=== PATIENT | male | born 1945 | race Caucasian/White ===

== ENCOUNTER 2016-09-27 22:58 | Inpatient (IN) | payer MEDICARE, OTHER ==
--- NOTE | ~2016-09-27 | HP ---
History And Physical [place] [id number] [facility] [place]. 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 HISTORY OF PRESENTING ILLNESS: The patient's history was obtained through an interview with the patient, coupled with review of [facility] medical records. The patient has been on chemotherapy for lymphoma under the care of Dr. Carly Gibson. The last chemotherapy was just two days prior to date of admission. For about three weeks now, the patient has been having increasing severe abdominal pain, but it has finally increased over these last two days, that it has become unbearable. He describes it across the upper abdomen mostly on the left side radiating towards the right, a cramping quality, 10/10 severity, exacerbated by food intake and associated with "a fear of eating." He cannot sleep at night because of increased pain. He has a lot of nausea, but no vomiting. He has had chills, but no fevers. He has been feeling hot and has had night sweats. During this time, his diabetes has been difficult to control with blood sugars consistently over 200. Over the last three weeks, he has lost about 25 pounds. REVIEW OF SYSTEMS: Otherwise, a 14-point review of systems was obtained and was negative. PAST MEDICAL HISTORY: 1. Lymphoma. First diagnosed in 2009 by records, now on chemotherapy, followed by Dr. Carly Gibson. 2. Diabetes. 3. Nephrolithiasis. 4. Obstructive sleep apnea, on CPAP. 5. Hypertension. 6. Elevated cholesterol. 7. GI bleed with peptic ulcer disease. Seen by Dr. Braydon Mohamud. 8. Fatty liver disease. 9. Rib fractures. 10.Myasthenia gravis. Thought to be in long-term remission now. He has a history of thymectomy. 11.Depression and anxiety. PAST SURGICAL HISTORY: 1. Melanoma in 2007. History And Physical [place] [address] [place]. [address] NAME: GINETTE AUGUST : 44 STATUS : ADM IN PAT#: [id number] AGE: 70 ADM/REG DATE : 09/28/16 MR#: [id number] REPORT SERV DATE: 09/28/16 DICTATED BY: LUIS HA DATE: 09/28/16 REPORT STATUS : Draft TRANSCRIBED BY: DONIS DATE: 09/28/16 2. Neck lymph node biopsies for initial diagnosis of lymphoma in 2009. 3. Umbilical hernia repair. 4. Thymectomy. 5. Multiple PEG tubes and G tube. 6. Right ankle surgery. ALLERGIES: NO KNOWN DRUG ALLERGIES. SOCIAL HISTORY: Quit smoking more than 30 years ago. Drinks occasional alcohol. He is . in good health. He has no biological children. 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 He lives in [place], [place]. FAMILY HISTORY: Two brothers with cancer. CURRENT MEDICATIONS: Include Norvasc 10 mg p.o. daily, benazepril 40 mg p.o. daily, Levemir 56 units subcutaneous twice a day, metformin 500 mg p.o. t.i.d., Zoloft 75 mg p.o. daily, allergy medication. PHYSICAL EXAMINATION: VITAL SIGNS: Temperature 98.6, pulse 85, blood pressure 187/95, respiratory rate 18, O2 saturation 92% on room air. GENERAL: A pleasant, cooperative, male, but he describes extreme distress from his abdominal pain. HEENT: Pupils equal, round, and reactive to light. No conjunctival pallor. No scleral icterus. Nares are patent. Oropharynx is clear of obstruction. Moist mucous membranes. NECK: Trachea midline. No thyromegaly. LYMPH: No cervical lymphadenopathy. No current supraclavicular lymphadenopathy, but patient states that he has had recent enlarged lymph nodes in this area despite absence on exam. RESPIRATORY: Clear to auscultation at bases. No wheezes, rales, or rhonchi. Normal respiratory effort. CARDIOVASCULAR: Regular rate and rhythm. No murmurs, rubs, or gallops. No extremity edema is appreciated. ABDOMEN: Diffusely tender by my exam, really nonfocal. There is guarding, but no rebound effect. Nondistended abdomen. No hepatosplenomegaly. DERMATOLOGIC: Warm and dry. EXTREMITIES: No pallor. No cyanosis. PSYCHIATRIC: Normal affect. Good mood. Alert and oriented x3. LABORATORY DATA: White blood count 11, hemoglobin 16, hematocrit 46, platelets 180. Sodium 138, potassium 3.5, chloride 99, bicarb 27, BUN 16, creatinine 0.93, glucose 319, lipase 141. Troponin negative. INR 1.1. STUDIES: 1. Chest x-ray by my own evaluation shows no acute cardiopulmonary process. 2. EKG by my own evaluation shows sinus rhythm. First-degree AV block, inferior Q-waves. 3. CT scan of the abdomen shows a 3.1 x 3.6 x 2.3 cm pancreatic mass, extensive mesenteric History And Physical [address] [address] NAME: GINETTE AUGUST : 44 STATUS : ADM IN [facility]#: [id number] AGE: 70 ADM/REG DATE : 09/28/16 MR#: [id number] REPORT SERV DATE: 09/28/16 DICTATED BY: LUIS AH DATE: 09/28/16 REPORT STATUS : Draft TRANSCRIBED BY: MODL DATE: 09/28/16 and retroperitoneal lymphadenopathy. ASSESSMENT AND PLAN: 1. Severe abdominal pain, uncontrolled, 10/[address] on IV [employer]OD [employer]AT[employer] TECHNOLOGIST morphine to try to get better control of pain. 2. Abdominal lymphoma, on chemotherapy. Consult oncologist, Dr. Carly Gibson. 3. Obstructive sleep apnea, place on CPAP. 4. Uncontrolled diabetes. Place on basal insulin, sliding scale insulin. Check hemoglobin A1c. 5. Myasthenia gravis. This seems to be in remission. KPL/MODL Luis Ha M.D. / [id number] CC: MD Braydon Hopkins D.O. David Collins, M.D. Brooke R. Daniel, M.D.
--- NOTE | ~2016-09-27 | DS ---
Discharge Summary [facility] [address] [place]. [address] NAME: GINETTE AUGUST : 44 STATUS : ADM IN PAT#: [id number] AGE: 70 ADM/REG DATE : 09/28/16 MR#: [id number] REPORT SERV DATE: 10/02/16 DICTATED BY: MAGUI DEJESUS II DATE: 10/01/16 REPORT STATUS : Draft TRANSCRIBED BY: MODL DATE: 10/01/16 ADMISSION DATE: 09/28/2016 DISCHARGE DATE: 10/01/2016 DISCHARGE DIAGNOSES: 1. 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 2. History of lymphoma, followed by Dr. Carly iGbson. 3. Diabetes mellitus type 2. 4. Hypertension. 5. Fatty liver disease. 6. Obesity. 7. Depression and anxiety. 8. History of myasthenia gravis status post thymectomy. 9. Severe abdominal pain status post celiac plexus nerve block. CONSULTANTS: 1. Dr. Markus Gibson with Oncology. 2. Dr. Tylor Ordoñez with Interventional Radiology. PROCEDURES: Pancreatic mass biopsy with celiac plexus block. BRIEF HISTORY OF PRESENT ILLNESS: The patient is a 70-year-old male with the above history who presented to [facility] due to worsening abdominal pain. For detailed history and physical examination, please see Dr. Mcconnell's note from 09/28/2016. HOSPITAL COURSE: On admission, the patient had a CT of the abdomen and pelvis, which showed extensive adenopathy, borderline splenomegaly consistent with diagnosis of CLL, increased prominence of pancreatic tail concerning for tumor adenopathy or pancreatitis. CA-19-9 was 194, lipase was normal, and an MRI of the abdomen was done, which showed enhancing tumoral type mass in the pancreatic tail. The patient was sent to Interventional Radiology for biopsy and a celiac plexus block was done at the same time. After the procedure the patient noted substantial improvement in his abdominal pain. Currently his pain is well controlled. He is ambulatory doing well, and the biopsies are currently pending. Oncology will follow him up on in Dr. Carly Gibson's office. Otherwise, he is currently stable for discharge and will provide a few days of Percocet for as needed pain control until he can follow up with Dr. Carly Gibson. DISCHARGE MEDICATIONS: 1. Norvasc 10 mg p.o. daily. 2. Benazepril 40 mg p.o. daily. 3. Levemir 56 units subcu b.i.d. 4. Metformin 500 mg p.o. t.i.d. 5. Zoloft 75 mg p.o. daily. 6. Zyrtec daily. 7. Percocet 10/325 mg p.o. q.4-6 hours p.r.n. pain. 8. Ativan 0.5 mg p.o. q.h.s. p.r.n. anxiety or sleep. Discharge Summary [address] [address] NAME: GINETTE AUGUST : 43 STATUS : ADM IN PAT#: [id number] AGE: 70 ADM/REG DATE : 09/28/16 MR#: [id number] REPORT SERV DATE: 10/02/16 DICTATED BY: MAGUI DEJESUS II DATE: 10/01/16 REPORT STATUS : Draft TRANSCRIBED BY: DONIS DATE: 10/01/16 DISCHARGE INSTRUCTIONS: The patient will follow Dr. Carly Gibson . TRISH/DONIS Maugi Dejesus II, MD / [id number] CC: MD Braydon Felton II, D.O.
--- NOTE | ~2016-09-27 | DS ---
Discharge Summary [place] [address] [place]. [address] NAME: GINETTE AUGUST : 44 STATUS : DIS IN PAT#: [id number] AGE: 70 ADM/REG DATE : 09/28/16 MR#: [id number] REPORT SERV DATE: 10/04/16 DICTATED BY: MAGUI DEJESUS II DATE: 10/03/16 REPORT STATUS : Draft TRANSCRIBED BY: DONIS DATE: 10/03/16 ADMISSION DATE: 09/28/2016 DISCHARGE DATE: 10/03/2016 ADDENDUM: The patient was held two more days, given recurrence of abdominal pain. He underwent a second celiac block with good result. He is currently tolerating his pain medicine well, pain controlled, and ready for discharge. Dr. Gibson is considering getting surgical evaluation for possible laparoscopic evaluation. If stage I disease, the patient may be candidate for surgical intervention but we will defer to Dr. Gibosn in followup. DISCHARGE INSTRUCTIONS: The patient has an appointment to see Dr. Gibson on Friday. TED Magui Dejesus II, MD / [id number] CC: MD Braydon Felton II, D.O.
[2016-09-27 17:54] LABS: BASOPHILS 0.2 %; BASOPHILS ABSOLUTE 0.02 10/3/uL (0.0-0.16); EOSINOPHILS 0.6 %; EOSINOPHILS ABSOLUTE 0.07 10/3/uL (0.0-0.53); IMMATURE GRANULOCYTES 0.2 %; IMMATURE GRANULOCYTES ABSOLUTE 0.02 10/3/uL (0.0-0.11); LYMPHOCYTES 12.2 %; LYMPHOCYTES ABSOLUTE 1.34 10/3/uL (0.67-4.30); MEAN CORPUS HGB CONC 34.8 g/dL (32.0-36.0); MEAN CORPUSCULAR HEMOGLOB 28.7 pg (26.0-34.0); MEAN CORPUSCULAR VOLUME 82.6 fL (80-100); MEAN PLATELET VOLUME 10.2 fL (9.2-13.0); MONOCYTES 7.4 %; MONOCYTES ABSOLUTE 0.81 10/3/uL (0.21-1.20); NEUTROPHILS 79.4 %; NEUTROPHILS ABSOLUTE 8.71 10/3/uL (2.02-8.40); RBC DISTRIBUTION WIDTH 14.8 % (12.0-16.0); RED CELL COUNT 5.57 10/6/uL (4.7-6.1)
[2016-09-27 17:56] LABS: MANUAL DIFF NO %; PLATELET COUNT 180 10/3/uL (150-400)
[2016-09-27 18:04] LABS: INTERNATIONAL NORMAL RATI 1.1 UNITS (-); PARTIAL THROMBO TIME 24.6 SEC (22.5-37.2); PROTIME (NOT ORD) 13.6 SEC (12.0-14.5)
[2016-09-27 18:15] LABS: BUN (BLOOD UREA NITROGEN) 16 MG/DL (6-23); CALCIUM, SERUM 8.8 MG/DL (8.5-10.4); CHEST PAIN PROFILE TAT 0 Hrs 25 Mins; CHLORIDE, SERUM 99 MMOL/L (96-112); CO2 (CARBON DIOXIDE) 27 MMOL/L (24-34); CREATININE 0.93 MG/DL (0.70-1.30); GFR AFRICAN AMERICAN 95 ML/MIN (>=60); GFR NON AFRICAN AMERICAN 82 ML/MIN (>=60); GLUCOSE, SERUM 219 MG/DL (60-99); POTASSIUM, SERUM 3.5 MMOL/L (3.5-5.3); SODIUM, SERUM 138 MMOL/L (135-148); TROPONIN I <0.02 NG/ML (<0.05)
[2016-09-27 22:40] LABS: ALKALINE PHOSPHATASE 83 U/L (45-117); SGOT(AST) 13 U/L (5-40); SGPT(ALT) 25 U/L (5-65); TOTAL BILIRUBIN 0.5 MG/DL (0-1.2); TOTAL PROTEIN 7.6 G/DL (6.0-8.5)
[2016-09-27 22:41] LABS: DIRECT BILIRUBIN < 0.1 MG/DL (0.0-0.4); INDIRECT BILIRUBIN(NOT ORDER) 0.4 MG/DL (0.1-0.9)
[~2016-09-27 22:58] MED LIST: GLUCPH PO; HYDROCHLOROT25 MG PO; IMU PO; KLOR-CON20 MEQ PO; LEVEMIR SC; LIPITOR20 PO; LOTE40 PO; NORV5 PO; PRILOSEC OTC20 MG PO; PYRID60 PO; ZOL100 PO
[2016-09-27] MEDS ORDERED: LEUKERAN PO (23:34)
[2016-09-27] MEDS ORDERED: ATV.5 PO (23:35)
[2016-09-27] MEDS ORDERED: OXYCOD PO (23:36)
[2016-09-27] MEDS ORDERED: PROTONIX PO (23:36)
[2016-09-27] MEDS ORDERED: LOTE40 PO (23:37)
[2016-09-27] MEDS ORDERED: LEVEMFLXPN SC (23:37)
[2016-09-27] MEDS ORDERED: HYDROCHLOROT12.5 MG PO (23:37)
[2016-09-27] MEDS ORDERED: NORV10 PO (23:38)
[2016-09-27] MEDS ORDERED: KLOR-CON M2020 MEQ PO (23:38)
[2016-09-27] MEDS ORDERED: ZOL50 PO (23:38)
[2016-09-27] MEDS ORDERED: SINGULAIR1 PO (23:39)
[2016-09-27] MEDS ORDERED: GLUCPH PO (23:39)
[2016-09-27] MEDS ORDERED: ZYRTEC ALLGY10 MG PO (23:40)
[2016-09-27] MEDS ORDERED: NOVOPEN SC (23:40)
[2016-09-27] MEDS ORDERED: ACET500CAP PO (23:41)
[2016-09-27] MEDS ORDERED: DSS PO (23:41)
[2016-09-27] MEDS ORDERED: CHEMOTHERAPY IV (23:45)
[2016-09-28] MEDS ORDERED: NORV10 PO (04:18)
[2016-09-28] MEDS ORDERED: GLUCPH PO (04:18)
[2016-09-28] MEDS ORDERED: ZOLOFT25 MG PO (04:19)
[2016-09-28] MEDS ORDERED: LOTE40 PO (04:19)
[2016-09-28] MEDS ORDERED: ALLERTEC PO (04:20)
[2016-09-28 11:58] LABS: BASOPHILS 0.2 %; BASOPHILS ABSOLUTE 0.01 10/3/uL (0.0-0.16); EOSINOPHILS 0.6 %; EOSINOPHILS ABSOLUTE 0.03 10/3/uL (0.0-0.53); HEMATOCRIT 42.3 % (40.0-51.0); HEMOGLOBIN 14.4 g/dL (13.6-17.8); LYMPHOCYTES ABSOLUTE 0.69 10/3/uL (0.67-4.30); MEAN CORPUSCULAR HEMOGLOB 28.1 pg (26.0-34.0); MEAN CORPUSCULAR VOLUME 82.5 fL (80-100); MEAN PLATELET VOLUME 10.1 fL (9.2-13.0); MONOCYTES 9.8 %; MONOCYTES ABSOLUTE 0.52 10/3/uL (0.21-1.20); NEUTROPHILS 76.4 %; NEUTROPHILS ABSOLUTE 4.04 10/3/uL (2.02-8.40); RBC DISTRIBUTION WIDTH 14.8 % (12.0-16.0); RED CELL COUNT 5.13 10/6/uL (4.7-6.1)
[2016-09-28 12:00] LABS: MANUAL DIFF NO %; PLATELET COUNT 117 10/3/uL (150-400); WHITE BLOOD CELLS 5.3 10/3/uL (4.5-10.5)
[2016-09-28 12:06] LABS: INTERNATIONAL NORMAL RATI 1.1 UNITS (-); PARTIAL THROMBO TIME 27.8 SEC (22.5-37.2)
[2016-09-28 12:23] LABS: ALBUMIN 3.3 G/DL (3.5-5.0); ALKALINE PHOSPHATASE 74 U/L (45-117); BUN (BLOOD UREA NITROGEN) 12 MG/DL (6-23); CALCIUM, SERUM 8.3 MG/DL (8.5-10.4); CHLORIDE, SERUM 104 MMOL/L (96-112); CO2 (CARBON DIOXIDE) 29 MMOL/L (24-34); CREATININE 0.77 MG/DL (0.70-1.30); GFR AFRICAN AMERICAN 106 ML/MIN (>=60); GFR NON AFRICAN AMERICAN 91 ML/MIN (>=60); GLOBULIN 3.2 G/DL (2.5-4.1); GLUCOSE, SERUM 196 MG/DL (60-99); POTASSIUM, SERUM 3.8 MMOL/L (3.5-5.3); SGOT(AST) 10 U/L (5-40); SGPT(ALT) 18 U/L (5-65); SODIUM, SERUM 140 MMOL/L (135-148); TOTAL BILIRUBIN 0.6 MG/DL (0-1.2); TOTAL PROTEIN 6.5 G/DL (6.0-8.5)
[2016-09-30 04:23] LABS: BASOPHILS 0.4 %; BASOPHILS ABSOLUTE 0.02 10/3/uL (0.0-0.16); HEMATOCRIT 42.2 % (40.0-51.0); HEMOGLOBIN 14.2 g/dL (13.6-17.8); IMMATURE GRANULOCYTES 0.2 %; IMMATURE GRANULOCYTES ABSOLUTE 0.01 10/3/uL (0.0-0.11); LYMPHOCYTES 21.7 %; LYMPHOCYTES ABSOLUTE 1.07 10/3/uL (0.67-4.30); MEAN CORPUS HGB CONC 33.6 g/dL (32.0-36.0); MEAN CORPUSCULAR VOLUME 83.2 fL (80-100); MEAN PLATELET VOLUME 10.3 fL (9.2-13.0); MONOCYTES 10.5 %; MONOCYTES ABSOLUTE 0.52 10/3/uL (0.21-1.20); NEUTROPHILS 65.2 %; NEUTROPHILS ABSOLUTE 3.21 10/3/uL (2.02-8.40); PLATELET COUNT 108 10/3/uL (150-400); RED CELL COUNT 5.07 10/6/uL (4.7-6.1); WHITE BLOOD CELLS 4.9 10/3/uL (4.5-10.5)
[2016-09-30 04:31] LABS: MANUAL DIFF NO %
[2016-09-30 04:33] LABS: BUN (BLOOD UREA NITROGEN) 14 MG/DL (6-23); CALCIUM, SERUM 8.6 MG/DL (8.5-10.4); CHLORIDE, SERUM 106 MMOL/L (96-112); CO2 (CARBON DIOXIDE) 28 MMOL/L (24-34); CREATININE 0.79 MG/DL (0.70-1.30); GFR AFRICAN AMERICAN 105 ML/MIN (>=60); GFR NON AFRICAN AMERICAN 90 ML/MIN (>=60); PARTIAL THROMBO TIME 26.4 SEC (22.5-37.2); POTASSIUM, SERUM 3.9 MMOL/L (3.5-5.3); PROTIME (NOT ORD) 13.5 SEC (12.0-14.5); SODIUM, SERUM 142 MMOL/L (135-148)
[2016-09-30 04:34] LABS: GLUCOSE, SERUM 106 MG/DL (60-99)
[2016-10-01] MEDS ORDERED: PERCOCET 10/3251 TAB PO (10:34)
[2016-10-01] MEDS ORDERED: ATV.5 PO (10:35)
[2016-10-03] MEDS ORDERED: PERCOCET 10/3251 TAB PO (11:35)
[2016-10-15] MEDS ORDERED: OXYCONTIN30 MG PO (11:38)
[2016-11-22] MEDS ORDERED: NOVOLOG SC (11:04)
[2017-01-02] MEDS ORDERED: NEULASTA SC (23:07)
[2017-01-02] MEDS ORDERED: CLARIT10 PO (23:07)
[2017-01-02] MEDS ORDERED: MULTIVIT/MIN PO (23:08)
[2017-01-02] MEDS ORDERED: LEVEMFLXPN (23:09)
[2017-01-02] MEDS ORDERED: ATV.5 PO (23:10)
[2017-01-02] MEDS ORDERED: K500 PO (23:11)
[2017-01-02] MEDS ORDERED: EMLA TOP (23:12)
[2017-01-02] MEDS ORDERED: CHEMOTHERAPY IV (23:13)
[2017-01-02] MEDS ORDERED: PERCOCET 7.5/321 TAB PO (23:15)
[2017-01-02] MEDS ORDERED: FLONASE NAS (23:15)
[2017-01-02] MEDS ORDERED: MARI5 PO (23:16)
[2017-01-02] MEDS ORDERED: OXYCON10 PO (23:17)
[2017-01-02] MEDS ORDERED: NORV10 PO (23:17)
[2017-01-02] MEDS ORDERED: LOTE40 PO (23:18)
[2017-01-02] MEDS ORDERED: ZOL50 PO (23:18)
[2017-01-02] MEDS ORDERED: NOVOPEN SC (23:19)
[2017-01-02] MEDS ORDERED: KDUR20 PO (23:19)
[2017-01-08] MEDS ORDERED: DSS PO (14:31)
[2017-01-08] MEDS ORDERED: MIRALAX POWDER1 PKT PO (14:37)
[2017-01-08] MEDS ORDERED: LEVAQUIN750 MG PO (14:39)
== END 2016-10-03 13:17 | disposition home or self-care (01) | DRG 435 ==
LOC: ER 22:58 → 4EA 09-28 02:35
PROVIDERS: Emergency Medicine; Internal Medicine; Radiology Diagnostic Radiology
PROC: 0FBG3ZX Excision of Pancreas, Percutaneous Approach, Diagnostic (ICD-10-PCS; principal; 2016-09-30)
PROC: 3E0T3BZ Introduction of Anesthetic Agent into Peripheral Nerves and Plexi, Percutaneous Approach (ICD-10-PCS; 2016-10-02)
DX: C25.0 Malignant neoplasm of head of pancreas (principal); E43 Unspecified severe protein-calorie malnutrition; C85.93 Non-Hodgkin lymphoma, unspecified, intra-abdominal lymph nodes; E11.65 Type 2 diabetes mellitus with hyperglycemia; G70.00 Myasthenia gravis without (acute) exacerbation; G89.3 Neoplasm related pain (acute) (chronic); G47.33 Obstructive sleep apnea (adult) (pediatric); Z68.32 Body mass index [BMI] 32.0-32.9, adult; F32.9 Major depressive disorder, single episode, unspecified
CPT/HCPCS: 48102; 64530; 71010; 71020; 74176; 74181; 77012; 80048; 80053; 80076; 82962; 83036; 83690; 83735; 84443; 84484; 85025; 85610; 85730; 86301; 88307; 88333; 93005; 96374; 99285; A9270-GY; A9577; J1170; J2250; J2270; J2405; J3010

== ENCOUNTER 2016-10-18 05:44 | Inpatient (IN) | payer MEDICARE, OTHER ==
[2016-10-15 15:22] LABS: BASOPHILS 0.4 %; BASOPHILS ABSOLUTE 0.03 10/3/uL (0.0-0.16); EOSINOPHILS 0.6 %; EOSINOPHILS ABSOLUTE 0.05 10/3/uL (0.0-0.53); HEMATOCRIT 44.3 % (40.0-51.0); HEMOGLOBIN 15.2 g/dL (13.6-17.8); IMMATURE GRANULOCYTES 0.1 %; IMMATURE GRANULOCYTES ABSOLUTE 0.01 10/3/uL (0.0-0.11); LYMPHOCYTES 12.8 %; LYMPHOCYTES ABSOLUTE 1.05 10/3/uL (0.67-4.30); MANUAL DIFF NO %; MEAN CORPUS HGB CONC 34.3 g/dL (32.0-36.0); MEAN CORPUSCULAR HEMOGLOB 28.3 pg (26.0-34.0); MEAN CORPUSCULAR VOLUME 82.5 fL (80-100); MEAN PLATELET VOLUME 9.9 fL (9.2-13.0); MONOCYTES 13.6 %; MONOCYTES ABSOLUTE 1.12 10/3/uL (0.21-1.20); NEUTROPHILS 72.5 %; NEUTROPHILS ABSOLUTE 5.97 10/3/uL (2.02-8.40); PLATELET COUNT 200 10/3/uL (150-400); RBC DISTRIBUTION WIDTH 14.4 % (12.0-16.0); RED CELL COUNT 5.37 10/6/uL (4.7-6.1); WHITE BLOOD CELLS 8.2 10/3/uL (4.5-10.5)
[2016-10-15 15:40] LABS: A/G RATIO 1.3 (0.7-1.9); ALBUMIN 3.8 G/DL (3.5-5.0); ALKALINE PHOSPHATASE 79 U/L (45-117); CALCIUM, SERUM 8.9 MG/DL (8.5-10.4); CHLORIDE, SERUM 102 MMOL/L (96-112); CO2 (CARBON DIOXIDE) 28 MMOL/L (24-34); GFR AFRICAN AMERICAN 99 ML/MIN (>=60); GFR NON AFRICAN AMERICAN 86 ML/MIN (>=60); GLOBULIN 2.9 G/DL (2.5-4.1); POTASSIUM, SERUM 3.9 MMOL/L (3.5-5.3); SGOT(AST) 16 U/L (5-40); SGPT(ALT) 32 U/L (5-65); SODIUM, SERUM 138 MMOL/L (135-148); TOTAL BILIRUBIN 0.7 MG/DL (0-1.2); TOTAL PROTEIN 6.7 G/DL (6.0-8.5)
[2016-10-15 15:42] LABS: BUN (BLOOD UREA NITROGEN) 8 MG/DL (6-23); GLUCOSE, SERUM 149 MG/DL (60-99)
--- NOTE | ~2016-10-18 | OP ---
Record Of Operation [facility] [address] [place]. 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 POSTOPERATIVE DIAGNOSIS: Adenocarcinoma involving the tail, body, and head of the pancreas with extensive retroperitoneal disease, celiac adenopathy, making this an unresectable cancer due to local extension and regional adenopathy and involvement of the lesser curve of the stomach with malignancy. PROCEDURE: Laparotomy, with biopsy of the head of the pancreas and celiac retroperitoneal lymph node. SURGEON: Rachael Garcia M.D. ANESTHESIA: General with intubation. COMPLICATIONS: None. ESTIMATED BLOOD LOSS: 25 mL. SPECIMENS: Biopsy of the body of pancreas and retroperitoneal celiac tissue. DRAINS: Alina in subcutaneous tissue. LAP AND SPONGE COUNT: Correct x3. BRIEF HISTORY: This 70-year-old male with a chronic history of lymphoma, presented recently with biopsy-proven adenocarcinoma involving the tail of the pancreas. The patient had severe back pain associated with this weight loss and anorexia. His radiographic imaging including an MRI and CT scan which suggested a mass in the tail of the pancreas. This mass was poorly defined and extent of the mass was unclear, but appeared to involve the tail. There was concern about possibility of involvement of the celiac axis and the retroperitoneum, but the findings were very indistinct and subtle. It was felt that laparotomy with attempted distal pancreatectomy and splenectomy is indicated. I have fully explained to the patient and his family prior to surgery that this might not be a resectable cancer. FINDINGS: The patient had a large mass involving the entire pancreas. The cancer was adherent to the lesser curve of the stomach and extending extensively into the retroperitoneum following the celiac axis. The lesser curve of the stomach was involved and this pancreas was not able to be mobilized from the retroperitoneum or the celiac axis making this clearly unresectable cancer based on local extent of the cancer and involvement of the celiac axis. A biopsy was performed in the retroperitoneal celiac area as well as the body of the pancreas to confirm malignancy. Frozen section confirmed adenocarcinoma. Again, this cancer was not isolated to the tail of the pancreas, was extending along the Record Of Operation [address] [place]. [address] NAME: GINETTE AUGUST : 44 STATUS : ADM IN PAT#: [id number] AGE: 70 ADM/REG DATE : 10/18/16 MR#: [id number] REPORT SERV DATE: 10/20/16 DICTATED BY: RACHAEL GARCIA III DATE: 10/20/16 REPORT STATUS : Draft TRANSCRIBED BY: MODL DATE: 10/20/16 entire length of the pancreas and extending in the retroperitoneum and the pancreas itself was not able to be mobilized safely from the celiac axis. The tumor appeared to involve the superior mesenteric vein as well as the superior mesenteric artery. It was my judgment that any attempted resection would result in life-threatening hemorrhage and would not in any way improve the patient's survival. DESCRIPTION OF PROCEDURE: After being properly identified and after discussing the risks of surgery with the patient and family again in the preoperative area, the patient was taken to the operating room and placed in a supine position on the operating room table. General anesthesia was administered and he was intubated without difficulty. A Thomas catheter was inserted. The abdomen was prepped and draped sterilely in usual fashion. After an appropriate "time-out" per JCAHO standards, a left subcostal incision was made about 2 cm below the costal margin. The incision was continued through the subcutaneous tissue. Hemostasis was controlled with electrocautery. The incision was continued through all layers of fascia. The abdominal cavity was entered. There was no evidence for carcinomatosis or peritoneal disease immediately. The lesser sac was entered by dividing the gastrocolic ligament with the Harmonic scalpel. This was done from the midbody of the stomach to the GE junction. The entire retroperitoneum in the lesser sac over the pancreas was fixed into one large mass. The entire pancreas appeared to be involved with malignancy extending from the splenic hilum all the way to the head of the pancreas. The cancer was very hard and firm involving the entire length of the pancreas. The pancreas itself was adherent to the lesser curve of the stomach superiorly and fixed to the retroperitoneum. The tumor appeared to be fixed over the superior mesenteric vein and portal vein, superior mesenteric artery and extending up the celiac axis. None of this tissue was friable. Using a core needle, we obtained core needle biopsies from the body of the pancreas as well as from the retroperitoneal celiac area. These biopsies returned on frozen section, positive for adenocarcinoma. My judgment that this was not a resectable cancer. Any attempted resection would not result in a curable process or prolong the patient's survival. Because of the involvement of the superior mesenteric vein and artery and probably the iliac artery, it was my judgment that any attempted resection would possibly result in life-threatening hemorrhage. For this reason, we elected again not to proceed with any attempted resection. The area was irrigated copiously with saline. Hemostasis was assured. The fascia was then closed in two layers with a running looped #1 PDS suture. The subcutaneous tissue was closed with a running 3-0 chromic suture over a Alina drain which was brought through the lateral aspect of the incision. The skin was closed with a running subcuticular 4-0 Monocryl stitch. Dressings were applied. Anesthesia was reversed, and the patient was taken to the recovery room in stable condition. He tolerated the procedure well. His family was informed results of surgery. The patient will remain in the hospital for postoperative care. SAMANTHA/DONIS Rachael Record Of Operation [address] [address] NAME: GINETTE AUGUST : 43 STATUS : ADM IN [facility]#: [id number] AGE: 70 ADM/REG DATE : 10/18/16 MR#: [id number] REPORT SERV DATE: 10/20/16 DICTATED BY: RACHAEL GARCIA III DATE: 10/20/16 REPORT STATUS : Draft TRANSCRIBED BY: MODL DATE: 10/20/16 David Garcia III, M.D. / [id number] CC: Kye Moseley III, M.D.
--- NOTE | ~2016-10-18 | DS ---
Discharge Summary [facility] [address] [place]. [address] NAME: GINETTE AUGUST : 43 STATUS : DIS IN PAT#: [id number] AGE: 70 ADM/REG DATE : 10/18/16 MR#: [id number] REPORT SERV DATE: 11/01/16 DICTATED BY: RACHAEL GARCIA III DATE: 10/31/16 REPORT STATUS : Draft TRANSCRIBED BY: MODL DATE: 10/31/16 Data Collection from hospitalization DEAN OF MEN: Dr. Carly Gibson. DISCHARGE DIAGNOSES: 1. 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 2. Myasthenia gravis. 3. Hypertension. 4. History of malignant lymphoma. 5. Diabetes mellitus. 6. Hyperlipidemia. 7. Obstructive sleep apnea. CONSULTATIONS: None. PROCEDURES PERFORMED: Laparotomy with biopsy of the head of the pancreas and celiac retroperitoneal lymph node, 10/18/2016. 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 MEDICATIONS: 1. Norvasc 10 mg daily. 2. Lotensin 40 mg daily. 3. Levemir FlexPen 56 units twice daily as needed. 4. Glucophage 500 mg twice daily. 5. OxyContin 30 mg every 12 hours. 6. Zoloft 75 mg every morning. 7. Alertec 100 mg daily. 8. Ativan 0.5 mg at bedtime as needed. CONDITION AT DISCHARGE: Upon discharge, he did appear to be doing well and had no complaints. DISPOSITION: He had been discharged home to continue an 1800-calorie ADA, GI soft diet with activity as discussed. He was to follow up with Dr. Carly Gibson on 10/28/2016, and follow up with myself in two weeks. HOSPITAL COURSE: This 70-year-old male had complaints of severe abdominal pain and back pain. These symptoms had been ongoing for one month. His workup had shown evidence for a large mass in the tail of the pancreas. CT-directed biopsy had shown this to be adenocarcinoma. He had evidence for possible retroperitoneal adenopathy on CT scan. He also had a chronic history of lymphoma and it was felt that this lymphoma may be responsible for the adenopathy, nevertheless, the severity of the patient's pain was of concern for possible adenocarcinoma. He was admitted for attempted distal pancreatectomy and splenectomy following attempt at curative procedure for his malignancy. This had been fully explained Discharge Summary [facility] [address] [place]. [address] NAME: GINETTE AUGUST : 43 STATUS : DIS IN PAT#: [id number] AGE: 70 ADM/REG DATE : 10/18/16 MR#: [id number] REPORT SERV DATE: 11/01/16 DICTATED BY: RACHAEL GARCIA III DATE: 10/31/16 REPORT STATUS : Draft TRANSCRIBED BY: MODL DATE: 10/31/16 to the patient that the tumor may not be resectable and that even if it was resectable, it may not be curable as it had spread beyond the field of resection, the high risk for the procedure given his comorbid risk factors, had been explained. He did understand and wished to proceed with surgery. He was admitted for this and further treatment. Upon admission to the hospital, he had been taken to the operating room where he did undergo the above procedure. He had tolerated this well and was transferred to the recovery room. On postop day 1, he did appear to be doing well and had no new complaints. He was continued on supportive care. He did have good pain control. His NG tube was removed and he had been placed on a clear liquid diet. On postop day #2, he had remained in stable condition and was noted to have had a temperature up to 100. His diet was advanced to a full liquid diet. He continued with good pain control. On postop day #3, he was alert and comfortable and had no new complaints noted. He was continued on his current medications. On postop day #4, he had been evaluated by Dr. Carly Gibson. Dr. Gibson had reviewed with the patient his prognosis and treatment options based on his unresectable adenocarcinoma of the pancreas and he was to follow up with Dr. Gibson as an outpatient. On 10/22/2016, he was encouraged to increase his activity. He had remained afebrile and his vital signs were stable. On postop day 5, he did continue to do well and had no new complaints noted. He was continued on his current medications. Due to his stable condition, he was then discharged with the above instructions. Information collected by: Yaya BlackIAyanaT. I submit the above information as my discharge summary. CANDIE/MODL Rachael Garcia III, M.D. / [id number] CC: Kye Moseley III, D.O. Brooke R. Daniel, M.D.
--- NOTE | ~2016-10-18 | PREOPHP ---
PreOp History and Physical [facility] [address] [place]. 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 The patient complains of severe abdominal pain and back pain. These symptoms have been ongoing for one month. The patient's workup shows evidence for a large mass in the tail of the pancreas. CT directed biopsy shows this to be adenocarcinoma. The patient has evidence for possible retroperitoneal adenopathy on CT scan. However, he also has a chronic history of lymphoma and it is felt that this lymphoma may be responsible for the adenopathy. Nevertheless, the severity of the patient's pain is of concern for possible adenocarcinoma. The patient comes now for attempted distal pancreatectomy, splenectomy following attempt at curative procedure for his malignancy. It has been fully explained to the patient that the tumor may not be resectable and that even if it is resectable, it may not be curable as it had spread beyond the field of resection. The high risk for the procedure given his comorbid risk factors has been explained. The patient understands and wishes to proceed with surgery as planned. PAST MEDICAL HISTORY: 1. History of malignant lymphoma, first diagnosed in 2009. The patient has been receiving chemotherapy for this. 2. Obesity. 3. Hypertension. 4. Diabetes mellitus. 5. History of myasthenia gravis status post thymectomy. 6. Hyperlipidemia. 7. Obstructive sleep apnea. MEDICATIONS: Norvasc, benazepril, insulin, metformin, sertraline. PAST SURGERY HISTORY: Includes umbilical hernia repair, thymectomy, PEG tube and G tube placement. FAMILY HISTORY: Positive for diabetes and prostate cancer. SOCIAL HISTORY: The patient has history of tobacco abuse. He has a history of alcohol use. ALLERGIES: NONE. REVIEW OF SYSTEMS: The patient complains of severe back pain, requiring recent celiac plexus block. He complains of abdominal pain. PHYSICAL EXAMINATION: GENERAL: This is an obese male, in no acute distress. He is alert and oriented x3. VITAL SIGNS: Blood pressure 104/67, pulse 94, and temperature 97.5. PreOp History and Physical [address] [address] NAME: GINETTE AUGUST : 43 STATUS : PRE IN PAT#: [id number] AGE: 70 ADM/REG DATE : MR#: [id number] REPORT SERV DATE: 10/18/16 DICTATED BY: RACHAEL GARCIA III DATE: 10/09/16 REPORT STATUS : Draft TRANSCRIBED BY: DONIS DATE: 10/09/16 HEENT: Unremarkable. NEUROLOGIC: Cranial cervical II through XII are normal. LUNGS: Clear. CARDIAC: Normal. ABDOMEN: Soft and nontender. EXTREMITIES: Normal. LABORATORY DATA: CT scan of the abdomen and pelvis and MRI which I have reviewed showed a large poorly defined mass in the distal pancreas. This extends to the splenic hilum. There is extensive lymphadenopathy consistent with the patient's diagnosis of lymphoma. However, there is also adenopathy and distortion of the tissues around the celiac axis of concern for metastatic adenocarcinoma involving the celiac plexus. 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 1. History of chronic lymphoma for which the patient has been receiving chemotherapy since 2010. 2. Obesity. 3. Hypertension. 4. Hyperlipidemia. 5. Diabetes mellitus. 6. History of myasthenia gravis. 7. Obstructive sleep apnea. PLAN: The patient comes to the operating room now for laparotomy with attempted distal pancreatectomy and splenectomy. The fact that this is a major operation with risk for major morbidity and mortality had been explained. This procedure, risks, benefits, and alternatives, including but not limited to the risk for bleeding, infection, enterotomy, injury to any abdominal structure, postop small bowel obstruction, ileus, incisional hernia, dehiscence, gastroparesis, gastric outlet obstruction, injury to the stomach, pancreatitis, pancreatic fistula formation, postoperative subphrenic abscess requiring reoperation, postsplenectomy sepsis, and unforeseen complications including deep venous thrombosis, pulmonary embolus, myocardial infarction, stroke, pneumonia, and , have been fully and completely explained to the patient and family at length. The fact that this is a major operation with risk for major morbidity and mortality has been explained. His questions have been answered. They clearly understands the risks and agreed to surgery as planned. WILLJ/DONIS Rachael Garcia III, M.D. / [id number]
[~2016-10-18 05:44] MED LIST changes: +ACET500CAP PO; +ALLERTEC PO; +ATV.5 PO; +CHEMOTHERAPY IV; +DSS PO; +HYDROCHLOROT12.5 MG PO; +KLOR-CON M2020 MEQ PO; +LEUKERAN PO; +LEVEMFLXPN SC; +NORV10 PO; +NOVOPEN SC; +OXYCOD PO; +OXYCONTIN30 MG PO; +PERCOCET 10/3251 TAB PO; +PROTONIX PO; +SINGULAIR1 PO; +ZOL50 PO; +ZOLOFT25 MG PO; +ZYRTEC ALLGY10 MG PO
[2016-10-18 07:17] LABS: INTERNATIONAL NORMAL RATI 1.1 UNITS (-); PARTIAL THROMBO TIME 26.8 SEC (22.5-37.2); PROTIME (NOT ORD) 14.2 SEC (12.0-14.5)
[2016-10-19 04:15] LABS: BASOPHILS 0.1 %; BASOPHILS ABSOLUTE 0.01 10/3/uL (0.0-0.16); EOSINOPHILS 0.2 %; EOSINOPHILS ABSOLUTE 0.02 10/3/uL (0.0-0.53); HEMOGLOBIN 13.2 g/dL (13.6-17.8); IMMATURE GRANULOCYTES 0.2 %; IMMATURE GRANULOCYTES ABSOLUTE 0.02 10/3/uL (0.0-0.11); LYMPHOCYTES 9.5 %; LYMPHOCYTES ABSOLUTE 0.77 10/3/uL (0.67-4.30); MEAN CORPUSCULAR HEMOGLOB 28.9 pg (26.0-34.0); MEAN CORPUSCULAR VOLUME 84.9 fL (80-100); MEAN PLATELET VOLUME 10.1 fL (9.2-13.0); MONOCYTES 7.9 %; MONOCYTES ABSOLUTE 0.64 10/3/uL (0.21-1.20); NEUTROPHILS 82.1 %; NEUTROPHILS ABSOLUTE 6.62 10/3/uL (2.02-8.40); RBC DISTRIBUTION WIDTH 14.9 % (12.0-16.0); RED CELL COUNT 4.57 10/6/uL (4.7-6.1); WHITE BLOOD CELLS 8.1 10/3/uL (4.5-10.5)
[2016-10-19 04:19] LABS: HEMATOCRIT 38.8 % (40.0-51.0); MANUAL DIFF NO %; PLATELET COUNT 100 10/3/uL (150-400)
[2016-10-19 04:23] LABS: BUN (BLOOD UREA NITROGEN) 10 MG/DL (6-23); CHLORIDE, SERUM 109 MMOL/L (96-112); CO2 (CARBON DIOXIDE) 25 MMOL/L (24-34); CREATININE 0.76 MG/DL (0.70-1.30); GFR AFRICAN AMERICAN 106 ML/MIN (>=60); GFR NON AFRICAN AMERICAN 92 ML/MIN (>=60); GLUCOSE, SERUM 175 MG/DL (60-99); POTASSIUM, SERUM 4.1 MMOL/L (3.5-5.3); SODIUM, SERUM 142 MMOL/L (135-148)
[2016-10-19 04:25] LABS: CALCIUM, SERUM 7.8 MG/DL (8.5-10.4)
[2016-10-20 04:33] LABS: BASOPHILS 0.1 %; BASOPHILS ABSOLUTE 0.01 10/3/uL (0.0-0.16); EOSINOPHILS 0.4 %; EOSINOPHILS ABSOLUTE 0.03 10/3/uL (0.0-0.53); HEMATOCRIT 37.7 % (40.0-51.0); HEMOGLOBIN 12.4 g/dL (13.6-17.8); IMMATURE GRANULOCYTES 0.3 %; IMMATURE GRANULOCYTES ABSOLUTE 0.02 10/3/uL (0.0-0.11); LYMPHOCYTES 7.4 %; LYMPHOCYTES ABSOLUTE 0.55 10/3/uL (0.67-4.30); MEAN CORPUS HGB CONC 32.9 g/dL (32.0-36.0); MEAN CORPUSCULAR HEMOGLOB 28.2 pg (26.0-34.0); MEAN CORPUSCULAR VOLUME 85.9 fL (80-100); MEAN PLATELET VOLUME 11.4 fL (9.2-13.0); MONOCYTES 14.9 %; MONOCYTES ABSOLUTE 1.11 10/3/uL (0.21-1.20); NEUTROPHILS 76.9 %; NEUTROPHILS ABSOLUTE 5.71 10/3/uL (2.02-8.40); PLATELET COUNT 92 10/3/uL (150-400); RBC DISTRIBUTION WIDTH 14.9 % (12.0-16.0); RED CELL COUNT 4.39 10/6/uL (4.7-6.1); WHITE BLOOD CELLS 7.4 10/3/uL (4.5-10.5)
[2016-10-20 04:34] LABS: MANUAL DIFF NO %
[2016-10-20 04:38] LABS: CALCIUM, SERUM 7.7 MG/DL (8.5-10.4); CHLORIDE, SERUM 107 MMOL/L (96-112); CO2 (CARBON DIOXIDE) 24 MMOL/L (24-34); CREATININE 0.67 MG/DL (0.70-1.30); GFR AFRICAN AMERICAN 112 ML/MIN (>=60); GFR NON AFRICAN AMERICAN 97 ML/MIN (>=60); GLUCOSE, SERUM 155 MG/DL (60-99); POTASSIUM, SERUM 3.9 MMOL/L (3.5-5.3); SODIUM, SERUM 140 MMOL/L (135-148)
[2016-10-20 04:44] LABS: BUN (BLOOD UREA NITROGEN) 6 MG/DL (6-23)
[2016-10-21 06:33] LABS: BASOPHILS 0.2 %; BASOPHILS ABSOLUTE 0.01 10/3/uL (0.0-0.16); EOSINOPHILS 1.4 %; EOSINOPHILS ABSOLUTE 0.07 10/3/uL (0.0-0.53); HEMATOCRIT 35.6 % (40.0-51.0); HEMOGLOBIN 11.9 g/dL (13.6-17.8); IMMATURE GRANULOCYTES 0.2 %; IMMATURE GRANULOCYTES ABSOLUTE 0.01 10/3/uL (0.0-0.11); LYMPHOCYTES 14.2 %; LYMPHOCYTES ABSOLUTE 0.72 10/3/uL (0.67-4.30); MEAN CORPUS HGB CONC 33.4 g/dL (32.0-36.0); MEAN CORPUSCULAR HEMOGLOB 28.6 pg (26.0-34.0); MEAN CORPUSCULAR VOLUME 85.6 fL (80-100); MEAN PLATELET VOLUME 11.1 fL (9.2-13.0); MONOCYTES 14.8 %; MONOCYTES ABSOLUTE 0.75 10/3/uL (0.21-1.20); NEUTROPHILS 69.2 %; NEUTROPHILS ABSOLUTE 3.51 10/3/uL (2.02-8.40); PLATELET COUNT 80 10/3/uL (150-400); RBC DISTRIBUTION WIDTH 14.5 % (12.0-16.0); RED CELL COUNT 4.16 10/6/uL (4.7-6.1); WHITE BLOOD CELLS 5.1 10/3/uL (4.5-10.5)
[2016-10-21 06:35] LABS: MANUAL DIFF NO %
[2016-10-21 06:36] LABS: BUN (BLOOD UREA NITROGEN) 4 MG/DL (6-23); CALCIUM, SERUM 7.9 MG/DL (8.5-10.4); CHLORIDE, SERUM 107 MMOL/L (96-112); CO2 (CARBON DIOXIDE) 25 MMOL/L (24-34); CREATININE 0.64 MG/DL (0.70-1.30); GFR AFRICAN AMERICAN 114 ML/MIN (>=60); GFR NON AFRICAN AMERICAN 99 ML/MIN (>=60); GLUCOSE, SERUM 150 MG/DL (60-99); POTASSIUM, SERUM 3.9 MMOL/L (3.5-5.3); SODIUM, SERUM 139 MMOL/L (135-148)
[2016-10-22 06:43] LABS: BASOPHILS 0.4 %; BASOPHILS ABSOLUTE 0.02 10/3/uL (0.0-0.16); HEMATOCRIT 37.5 % (40.0-51.0); HEMOGLOBIN 12.7 g/dL (13.6-17.8); LYMPHOCYTES 10.6 %; LYMPHOCYTES ABSOLUTE 0.53 10/3/uL (0.67-4.30); MEAN CORPUS HGB CONC 33.9 g/dL (32.0-36.0); MEAN CORPUSCULAR HEMOGLOB 28.8 pg (26.0-34.0); MEAN PLATELET VOLUME 11.8 fL (9.2-13.0); MONOCYTES 13.2 %; MONOCYTES ABSOLUTE 0.66 10/3/uL (0.21-1.20); NEUTROPHILS 73.8 %; NEUTROPHILS ABSOLUTE 3.69 10/3/uL (2.02-8.40); PLATELET COUNT 88 10/3/uL (150-400); RED CELL COUNT 4.41 10/6/uL (4.7-6.1)
[2016-10-22 06:44] LABS: MANUAL DIFF NO %
[2016-10-22 06:56] LABS: BUN (BLOOD UREA NITROGEN) 4 MG/DL (6-23); CALCIUM, SERUM 8.1 MG/DL (8.5-10.4); CHLORIDE, SERUM 106 MMOL/L (96-112); CO2 (CARBON DIOXIDE) 26 MMOL/L (24-34); CREATININE 0.51 MG/DL (0.70-1.30); GFR AFRICAN AMERICAN 125 ML/MIN (>=60); GFR NON AFRICAN AMERICAN 108 ML/MIN (>=60); SODIUM, SERUM 140 MMOL/L (135-148)
[2016-10-22 06:57] LABS: GLUCOSE, SERUM 195 MG/DL (60-99)
[2016-10-23] MEDS ORDERED: PERCOCET 7.5/321 TAB PO (07:42)
[2016-11-22] MEDS ORDERED: NOVOLOG SC (11:04)
[2017-01-02] MEDS ORDERED: NEULASTA SC (23:07)
[2017-01-02] MEDS ORDERED: CLARIT10 PO (23:07)
[2017-01-02] MEDS ORDERED: MULTIVIT/MIN PO (23:08)
[2017-01-02] MEDS ORDERED: LEVEMFLXPN (23:09)
[2017-01-02] MEDS ORDERED: ATV.5 PO (23:10)
[2017-01-02] MEDS ORDERED: K500 PO (23:11)
[2017-01-02] MEDS ORDERED: EMLA TOP (23:12)
[2017-01-02] MEDS ORDERED: CHEMOTHERAPY IV (23:13)
[2017-01-02] MEDS ORDERED: FLONASE NAS (23:15)
[2017-01-02] MEDS ORDERED: PERCOCET 7.5/321 TAB PO (23:15)
[2017-01-02] MEDS ORDERED: MARI5 PO (23:16)
[2017-01-02] MEDS ORDERED: OXYCON10 PO (23:17)
[2017-01-02] MEDS ORDERED: NORV10 PO (23:17)
[2017-01-02] MEDS ORDERED: ZOL50 PO (23:18)
[2017-01-02] MEDS ORDERED: LOTE40 PO (23:18)
[2017-01-02] MEDS ORDERED: KDUR20 PO (23:19)
[2017-01-02] MEDS ORDERED: NOVOPEN SC (23:19)
[2017-01-08] MEDS ORDERED: DSS PO (14:31)
[2017-01-08] MEDS ORDERED: MIRALAX POWDER1 PKT PO (14:37)
[2017-01-08] MEDS ORDERED: LEVAQUIN750 MG PO (14:39)
== END 2016-10-23 14:35 | disposition home or self-care (01) | DRG 421 ==
LOC: SDC/OF 05:44 → MIC 11:40 → 5SO 10-20 11:16
PROVIDERS: Surgery
PROC: 07BD0ZX Excision of Aortic Lymphatic, Open Approach, Diagnostic (ICD-10-PCS; 2016-10-18)
PROC: 00HU33Z Insertion of Infusion Device into Spinal Canal, Percutaneous Approach (ICD-10-PCS; 2016-10-18)
PROC: 0FBG0ZX Excision of Pancreas, Open Approach, Diagnostic (ICD-10-PCS; principal; 2016-10-18 07:45)
DX: C25.8 Malignant neoplasm of overlapping sites of pancreas (principal); C78.89 Secondary malignant neoplasm of other digestive organs; K76.0 Fatty (change of) liver, not elsewhere classified; E11.9 Type 2 diabetes mellitus without complications; I10 Essential (primary) hypertension; Z51.5 Encounter for palliative care; Z85.72 Personal history of non-Hodgkin lymphomas; G47.33 Obstructive sleep apnea (adult) (pediatric); E78.5 Hyperlipidemia, unspecified; E66.9 Obesity, unspecified; Z79.899 Other long term (current) drug therapy; Z82.3 Family history of stroke; Z80.42 Family history of malignant neoplasm of prostate; Z87.891 Personal history of nicotine dependence; Z79.4 Long term (current) use of insulin; Z68.32 Body mass index [BMI] 32.0-32.9, adult; F32.9 Major depressive disorder, single episode, unspecified; F41.9 Anxiety disorder, unspecified; R63.4 Abnormal weight loss
CPT/HCPCS: 36415; 71010; 71020; 80048; 80053; 82962; 85025; 85610; 85730; 86850; 86900; 86901; 86920; 87641; 88307; 88331; 93005; A9270-GY; C1751; C1769; C9113; J0690; J2250; J2300; J2370; J3010

== ENCOUNTER 2016-12-06 09:39 | Day surgery (SDC) | payer MEDICARE, OTHER ==
[2016-11-22 13:27] LABS: HEMOGLOBIN 12.8 g/dL (13.6-17.8); MANUAL DIFF YES %; MEAN CORPUS HGB CONC 33.7 g/dL (32.0-36.0); MEAN CORPUSCULAR HEMOGLOB 29.4 pg (26.0-34.0); MEAN CORPUSCULAR VOLUME 87.2 fL (80-100); MEAN PLATELET VOLUME 10.1 fL (9.2-13.0); PLATELET COUNT 213 10/3/uL (150-400); RBC DISTRIBUTION WIDTH 15.6 % (12.0-16.0); RED CELL COUNT 4.36 10/6/uL (4.7-6.1); WHITE BLOOD CELLS 6.5 10/3/uL (4.5-10.5)
[2016-11-22 13:44] LABS: CALCIUM, SERUM 8.7 MG/DL (8.5-10.4); CHLORIDE, SERUM 105 MMOL/L (96-112); CO2 (CARBON DIOXIDE) 28 MMOL/L (24-34); CREATININE 0.66 MG/DL (0.70-1.30); GFR AFRICAN AMERICAN 113 ML/MIN (>=60); GFR NON AFRICAN AMERICAN 97 ML/MIN (>=60); GLUCOSE, SERUM 174 MG/DL (60-99); POTASSIUM, SERUM 4.1 MMOL/L (3.5-5.3); SODIUM, SERUM 138 MMOL/L (135-148)
[2016-11-22 13:45] LABS: BUN (BLOOD UREA NITROGEN) 10 MG/DL (6-23)
[2016-11-22 13:47] LABS: BAND NEUTROPHILS 6 %; EOSINOPHILS 1 %; EOSINOPHILS ABSOLUTE (CALC) 0.07 10/3/uL (0.0-0.53); LYMPHOCYTES 21 %; LYMPHOCYTES ABSOLUTE (CALC) 1.37 10/3/uL (0.67-4.30); MONOCYTES 14 %; MONOCYTES ABSOLUTE (CALC) 0.91 10/3/uL (0.21-1.20); NEUTROPHILS ABSOLUTE (CALC) 4.16 10/3/uL (2.02-8.40); SEGMENTED NEUTROPHIL (0) 58 %; TOTAL NUCLEATED CELLS 100
[2016-11-22 13:48] LABS: ELLIPTOCYTES 1+ (3-10/OIF) (0-2/OIF); MACROCYTES 1+ (5-10/OIF) (0-5/OIF); PLATELET ESTIMATE ADQ (ADEQUATE)
[2016-11-22 13:49] LABS: ATYPICAL LYMPH MOD (6-10%) (0-5%); ROULEAUX FORMATION 1+
--- NOTE | ~2016-12-06 | OP ---
Record Of Operation [facility] [address] [place]. [address] NAME: GINETTE AUGUST : 43 STATUS : [facility]#: [id number] AGE: 70 ADM/REG DATE : 12/06/16 MR#: [id number] REPORT SERV DATE: 12/09/16 DICTATED BY: RACHAEL GARCIA III DATE: 12/06/16 REPORT STATUS : Draft TRANSCRIBED BY: MODL DATE: 12/06/16 DATE OF PROCEDURE: 12/06/2016 PREOPERATIVE DIAGNOSIS: Unresectable pancreatic cancer with need for Port-A-Cath placement to allow for chronic IV access for chemotherapy. POSTOPERATIVE DIAGNOSIS: Unresectable pancreatic cancer with need for Port-A-Cath placement to allow for chronic IV access for chemotherapy. PROCEDURE: Right subclavian Port-A-Cath with fluoroscopy. SURGEON: Rachael Garcia M.D. ANESTHESIA: General with intubation. COMPLICATIONS: None. ESTIMATED BLOOD LOSS: Less than 5 mL. SPECIMENS: None. DRAINS: None. LAP AND SPONGE COUNT: Correct x3. BRIEF HISTORY: This 70-year-old male was recently diagnosed with unresectable locally advanced pancreatic cancer. We have been asked by his medical oncologist to place a Port-A- Cath to allow for chronic IV access for chemotherapy. This procedure, the risks, benefits, and alternatives, including but not limited to the risk for bleeding, infection, pneumothorax, air embolus, pericardial tamponade, failure of the port to function, infection of the port or subclavian vein thrombosis requiring removal of the port, dislodgement of the Port-A-Cath tubing requiring extraction, and unforeseen complications including deep venous thrombosis, pulmonary embolus, myocardial infarction, stroke, pneumonia, and were explained to the patient prior to the surgery. His questions were answered. He understood the risks and agreed to the surgery as planned. DESCRIPTION OF PROCEDURE: After being appropriately identified, and after discussing risks of surgery with the patient again in the preoperative area, the patient was taken to the operating room and placed in the supine position on the operating room table. General anesthesia was administered, and the patient was intubated without difficulty. The upper chest and neck areas were prepped and draped sterilely in the usual fashion. After an appropriate "time-out" per JCAHO standards, -gauge needle was used to identify the right subclavian vein. The vein was identified on the first pass of the needle. A guidewire was passed through the needle and the needle was removed. Fluoroscopy was performed, confirming the tip of the guidewire to be in the correct position of superior vena cava. A small transverse incision was then made at the exit site of the guidewire from the skin. A Record Of Operation [facility] [address] [place]. [address] NAME: GINETTE AUGUST : 43 STATUS : DEP [facility]#: [id number] AGE: 70 ADM/REG DATE : 12/06/16 MR#: [id number] REPORT SERV DATE: 12/09/16 DICTATED BY: RACHAEL GARCIA III DATE: 12/06/16 REPORT STATUS : Draft TRANSCRIBED BY: DONIS DATE: 12/06/16 subcutaneous infraclavicular pocket was made of the appropriate size for the Port-A-Cath housing. The Port-A-Cath housing was connected to the tubing. The Port-A-Cath housing and tubing were flushed with a heparin solution, and the tubing was cut to the appropriate length. The introducer was then placed over the guidewire. The guidewire and inner dilator were removed. The Port-A-Cath tubing was then placed through the sheath as the sheath was peeled away. This went very smoothly. The Port-A-Cath housing was positioned in the infraclavicular pocket. It was secured in place with 2-0 silk sutures. It was accessed with a Winslow needle and noted to aspirate blood easily. It was then flushed with heparin solution noted to flush easily. Repeat fluoroscopy was performed, confirming the tip of the Port-A-Cath tubing to be in the correct position in superior vena cava. Hemostasis was assured. The subcutaneous tissue was closed with a running 3-0 Vicryl suture. The skin was closed with running subcuticular 4-0 Monocryl stitch. The incision was injected with 0.5% Marcaine. Dressings were applied. Anesthesia was reversed, and the patient was taken to recovery room in stable condition. The patient tolerated the procedure well. The patient will be discharged later when stable and comfortable after the chest x-ray has been cleared per Radiology. The patient's family was advised that the wound should be kept clean and dry for 48 hours, that there should be no driving for 2-3 days after surgery or while using narcotics, and the patient shall resume usual medications. The patient was asked to return in two weeks for followup or sooner for any fever, chills, wound drainage, or other problems prior to that time. SAMANTHA/DONIS Rachael Garcia III, M.D. / [id number] CC: Kye Moseley III, D.O.
--- NOTE | ~2016-12-06 | PREOPHP ---
PreOp History and Physical [address] [place]. [address] NAME: GINETTE AUGUST : 43 STATUS : REG [facility]#: [id number] AGE: 70 ADM/REG DATE : 12/06/16 MR#: [id number] REPORT SERV DATE: 12/06/16 DICTATED BY: RACHAEL GARCIA III DATE: 11/20/16 REPORT STATUS : Draft TRANSCRIBED BY: MODJustin DATE: 11/20/16 HISTORY OF PRESENT ILLNESS: This 70-year-old male comes to the operating room for subclavian vein Port-A-Cath placement to allow for chronic IV access for chemotherapy. The patient has recently been diagnosed with adenocarcinoma of the body of the pancreas. This is an unresectable cancer. The patient comes to the operating room now for Port-A-Cath placement to allow for chronic IV access for chemotherapy. PAST MEDICAL HISTORY: 1. History of recently diagnosed malignant adenocarcinoma of the pancreas, unresectable. 2. History of malignant lymphoma, diagnosed in 2009. 3. Obesity. 4. Hypertension. 5. Diabetes mellitus. 6. History of myasthenia gravis, status post thymectomy. 7. Hyperlipidemia. 8. Obstructive sleep apnea. MEDICATIONS: Norvasc, benazepril, insulin, metformin, and sertraline. PAST SURGICAL HISTORY: Includes laparotomy, umbilical hernia repair, thymectomy, and PEG tube placement. FAMILY HISTORY: Positive for diabetes and prostate cancer. SOCIAL HISTORY: The patient has a history of tobacco abuse. He has a history of alcohol use. ALLERGIES: NONE. REVIEW OF SYSTEMS: The patient complains of abdominal pain and back pain. PHYSICAL EXAMINATION: GENERAL: Reveals a male, in no acute distress. He is alert and oriented x3. HEENT: Unremarkable. NEURO: Cranial nerves II through XII are normal. LUNGS: Clear. CARDIAC: Normal. ABDOMEN: Soft and nontender. ASSESSMENT: 1. A 70-year-old male with unresectable pancreatic cancer, with need for Port-A-Cath placement to allow for chronic IV access for chemotherapy. 2. History of lymphoma. 3. Hypertension. 4. Diabetes mellitus. PreOp History and Physical [address] [address] NAME: GINETTE AUGUST : 43 STATUS : REG [facility] PAT#: [id number] AGE: 70 ADM/REG DATE : 12/06/16 MR#: [id number] REPORT SERV DATE: 12/06/16 DICTATED BY: RACHAEL GARCIA III DATE: 11/20/16 REPORT STATUS : Draft TRANSCRIBED BY: DONIS DATE: 11/20/16 5. History of obesity. 6. History of myasthenia gravis. 7. Obstructive sleep apnea. PLAN: The patient comes to the operating room now for subclavian vein Port-A-Cath placement. This procedure, the risks, benefits, and alternatives, including not limited to the risk for bleeding, infection, pneumothorax, air embolus, pericardial tamponade, failure of the port to function, dislodgement of Port-A-Cath tubing requiring extraction, infection of the port, or subclavian vein thrombosis requiring removal of the port, dislodgement of the Port-A-Cath tubing requiring extraction, and unforeseen complications including deep venous thrombosis, pulmonary embolus, myocardial infarction, stroke, pneumonia, and , have been explained to the patient prior to surgery. The expected length of recovery has been explained. The patient's questions have been answered. He understands the risks and agrees to surgery as planned. SAMANTHA/DONIS Rachael Garcia III, M.D. / [id number]
[~2016-12-06 09:39] MED LIST changes: +NOVOLOG SC; +PERCOCET 7.5/321 TAB PO
[2016-12-06 10:12] LABS: A/G RATIO 0.9 (0.7-1.9); ALBUMIN 3.2 G/DL (3.5-5.0); ALKALINE PHOSPHATASE 94 U/L (45-117); BUN (BLOOD UREA NITROGEN) 9 MG/DL (6-23); CALCIUM, SERUM 9.1 MG/DL (8.5-10.4); CHLORIDE, SERUM 106 MMOL/L (96-112); CO2 (CARBON DIOXIDE) 29 MMOL/L (24-34); CREATININE 0.63 MG/DL (0.70-1.30); GFR AFRICAN AMERICAN 115 ML/MIN (>=60); GFR NON AFRICAN AMERICAN 99 ML/MIN (>=60); GLOBULIN 3.6 G/DL (2.5-4.1); GLUCOSE, SERUM 138 MG/DL (60-99); POTASSIUM, SERUM 4.3 MMOL/L (3.5-5.3); SGOT(AST) 15 U/L (5-40); SGPT(ALT) 34 U/L (5-65); SODIUM, SERUM 141 MMOL/L (135-148); TOTAL BILIRUBIN 0.8 MG/DL (0-1.2); TOTAL PROTEIN 6.8 G/DL (6.0-8.5)
[2017-01-02] MEDS ORDERED: CLARIT10 PO (23:07)
[2017-01-02] MEDS ORDERED: NEULASTA SC (23:07)
[2017-01-02] MEDS ORDERED: MULTIVIT/MIN PO (23:08)
[2017-01-02] MEDS ORDERED: LEVEMFLXPN (23:09)
[2017-01-02] MEDS ORDERED: ATV.5 PO (23:10)
[2017-01-02] MEDS ORDERED: K500 PO (23:11)
[2017-01-02] MEDS ORDERED: EMLA TOP (23:12)
[2017-01-02] MEDS ORDERED: CHEMOTHERAPY IV (23:13)
[2017-01-02] MEDS ORDERED: PERCOCET 7.5/321 TAB PO (23:15)
[2017-01-02] MEDS ORDERED: FLONASE NAS (23:15)
[2017-01-02] MEDS ORDERED: MARI5 PO (23:16)
[2017-01-02] MEDS ORDERED: OXYCON10 PO (23:17)
[2017-01-02] MEDS ORDERED: NORV10 PO (23:17)
[2017-01-02] MEDS ORDERED: ZOL50 PO (23:18)
[2017-01-02] MEDS ORDERED: LOTE40 PO (23:18)
[2017-01-02] MEDS ORDERED: KDUR20 PO (23:19)
[2017-01-02] MEDS ORDERED: NOVOPEN SC (23:19)
[2017-01-08] MEDS ORDERED: DSS PO (14:31)
[2017-01-08] MEDS ORDERED: MIRALAX POWDER1 PKT PO (14:37)
[2017-01-08] MEDS ORDERED: LEVAQUIN750 MG PO (14:39)
== END 2016-12-06 18:09 | disposition home or self-care (01) ==
LOC: SDC 09:39
PROVIDERS: Surgery
PROC: 05H533Z Insertion of Infusion Device into Right Subclavian Vein, Percutaneous Approach (ICD-10-PCS; principal; 2016-12-06 11:15)
DX: C25.9 Malignant neoplasm of pancreas, unspecified (principal); I10 Essential (primary) hypertension; E11.9 Type 2 diabetes mellitus without complications; E78.00 Pure hypercholesterolemia, unspecified; G47.33 Obstructive sleep apnea (adult) (pediatric); G70.00 Myasthenia gravis without (acute) exacerbation; C85.90 Non-Hodgkin lymphoma, unspecified, unspecified site; F41.9 Anxiety disorder, unspecified; F32.9 Major depressive disorder, single episode, unspecified; Z99.89 Dependence on other enabling machines and devices; Z79.4 Long term (current) use of insulin; Z79.84 Long term (current) use of oral hypoglycemic drugs; Z79.899 Other long term (current) drug therapy; Z92.21 Personal history of antineoplastic chemotherapy; Z87.891 Personal history of nicotine dependence; Z87.442 Personal history of urinary calculi; Z90.89 Acquired absence of other organs; Z98.890 Other specified postprocedural states
CPT/HCPCS: 71010; 77001; 80048; 80053; 82962; 85025; 93005; C1751; J0690; J2250; J2405; J3010